=== PATIENT | male | born 1995 | race Caucasian/White ===

== ENCOUNTER 2024-03-29 11:18 | Emergency (ER) | payer SELFPAY ==
[2024-03-29 11:28] VITALS: BP 140/83; PULSE 68; RESP 16; TEMP 37.1; O2SAT 99
--- NOTE | 2024-03-29 11:56 | ED.GENADULT ---
HPI - General Adult General Chief complaint: Extremity Injury, Lower Stated complaint: Left Foot Big Toe Pain Source: patient Mode of arrival: ambulatory Limitations: no limitations History of Present Illness HPI narrative: Patient presents for evaluation redness to left great toe. Symptom onset 2 weeks ago. He indicates he has ingrown nail, and stubbed his toe just prior to the time of symptom onset. Now he has some green drainage from the affected area. No fever, chills, nausea, vomiting. He is not diabetic. Reports minimal pain. He has been soaking his foot in warm water. He reports many plantar warts to the bottom of the left foot after getting trench foot while in the years ago. Related Data Allergies Allergy/AdvReac Type Severity Reaction Status Date / Time No Known Allergies Allergy Verified 03/29/24 11:45 Review of Systems Review of Systems: CONSTITUTIONAL: Denies fever, chills, or sweats. EYES: Denies visual changes, redness, or discharge. ENT: Denies rhinorrhea, congestion, sore throat, or otalgia. CARDIOVASCULAR: Denies chest pain, palpitations, or edema. RESPIRATORY: Denies cough or dyspnea. GASTROINTESTINAL: Denies abdominal pain, nausea, vomiting, or diarrhea. GENITOURINARY: Denies dysuria or hematuria. SKIN: Reports redness to the left great toe with green drainage present. MUSCULOSKELETAL: Denies back pain, joint pain, or myalgia. NEUROLOGIC: Denies headache, numbness, dizziness, or weakness. PSYCHIATRIC: Denies anxiety or depression. PMFSH Past Medical History Medical History No pertinent past medical history Surgical History Surgical History No pertinent past surgical history Family History Family History Mother Family history non-contributory Social History Social History Smoking status: Never smoker Substance use: never Living arrangements: with family Gender identity (if verbalized by the patient): Male Spiritual care concerns: No Exam Narrative: GENERAL: Well-appearing, well-nourished, and in no acute distress. HEAD: Normocephalic, atraumatic. EYES: PERRLA and EOMI. ENT: Nares clear, no rhinorrhea or epistaxis. Mucous membranes moist. Oropharynx without tonsillar hypertrophy exudate or other lesions. Bilateral TMs pearly jain nonbulging NECK: Supple. No adenopathy or masses. No carotid bruits or JVD CHEST: Clear to auscultation. No respiratory distress. No wheezes rales or rhonchi HEART: Regular rate and rhythm. No murmur heard. Normal peripheral pulses. ABDOMEN: Soft, nontender, nondistended, normal active bowel sounds. EXTREMITIES: Normal range of motion. No edema. SKIN: there is redness to the skin surrounding the nail plate of the left great toe with a scant amount of serosanguineous dried drainage present NEURO: No focal deficits. Alert and oriented x3. PSYCH: Normal mood and affect. Course Course Emergency Course: This is a 28-year-old male who presented for evaluation of redness left great toe. He has evidence of paronychia. Continue warm soaks but add epsom salt. Wound culture was obtained. Start bactrim and cephalexin. Follow up with podiatry. Go to the ER for worsening symptoms. Pt in agreement with plan of care. Level of Care: Express Care Visit Vital Signs Vital signs: Vital Signs Temperature 37.1 C 03/29/24 11:28 Pulse Rate 68 03/29/24 11:28 Respiratory Rate 16 03/29/24 11:28 Blood Pressure 140/83 03/29/24 11:28 Pulse Oximetry 99 03/29/24 11:28 Oxygen Delivery Room Air 03/29/24 11:28 Temperature 37.1 C 03/29/24 11:28 Pulse Rate 68 03/29/24 11:28 Respiratory Rate 16 03/29/24 11:28 Blood Pressure 140/83 03/29/24 11:28 Pulse Oximetry 99 08/2
== END 2024-03-29 12:00 | disposition home or self-care (01) ==
PROVIDERS: Emergency Provider Nurse Practitioner
DX: L03.032 Cellulitis of left toe (principal)
CPT/HCPCS: 87070; 87075; 87081; 87181; 87205; 99203; G0463